=== PATIENT | male | born 1960 | race Caucasian/White ===

== ENCOUNTER → 2018-11-22 | Emergency (ER) | payer MEDICARE, MEDICAID ==
[~2018-11-22] VITALS: Ht 172.7 cm; Wt 61.2 kg
[~2018-11-22] MED LIST: Albuterol ud Inhalation HHN ONE; BACTRIM 400-801 EACH ORAL; Bactrim-DS 1 tab ORAL ONE; CIPROFLOXACIN500 MG PO; INTELENCE200 MG PO; LEVAQUIN500 MG ORAL; NORVIR100 MG PO; PREZISTA600 MG PO; Promethazine/Codeine 5ml UD ORAL ONE; RANITIDINE HCL150 MG ORAL; SEROSTIM4 MG SQ; TIVICAY50 MG ORAL; TRUVADA1 TAB PO; VALACYCLOVIR500 MG ORAL; XANAX2 MG ORAL
--- NOTE | 2018-11-22 11:48 | NUR ---
ED Nurse Note: pt states not feeling well x 2-3 days with productive cough of yellow sputum. pt reports having chills and body aches, worsened to bilat. mid back area. sttates voiding without difficulty yellow urine. states having nausea at home and taking zofran for it. denies diarrhea. pt presents ambulatory from home.
--- NOTE | 2018-11-22 11:53 | Emergency Room Report ---
History of Present Illness General Chief Complaint: Upper Respiratory Illness Source: Patient Present Illness HPI Patient presents with complaint of cough and congestion ongoing for the past several days Denies any vomiting He has some tightness with the cough as well denies any neck pain or photophobia Patient has complex medical history Otherwise denies any recent travel Denies any dysphagia Allergies: Coded Allergies: LISINOPRIL (Verified Allergy, Unknown, SWOLLEN FACE, 12/30/11) SHELLFISH (Verified Allergy, Unknown, SWOLLEN FACE, 12/30/11) Uncoded Allergies: SHELLFISH (Allergy, Mild, 02/28/07) BEE STINGS (Allergy, Unknown, 11/13/09) Patient History Past Medical History: see triage record Pertinent Family History: none Reviewed Nursing Documentation: PMH: Agreed; PSxH: Agreed Nursing Documentation-PMH Past Medical History: No History, Except For Hx Cardiac Problems: No Hx Cancer: Yes - COLON CANCER WITH SURGICAL INTERVENTION Hx Gastrointestinal Problems: No Hx Peripheral Neuropathy: Yes - hands and feet Review of Systems All Other Systems: negative except mentioned in HPI Physical Exam Vital Signs Date Time Temp Pulse Resp B/P (MAP) Pulse Ox O2 Delivery O2 Flow Rate FiO2 11/22/18 11:29 98.6 88 21 154/81 94 Room Air Sp02 EP Interpretation: reviewed, normal General Appearance: no apparent distress Head: normocephalic, atraumatic Eyes: bilateral eye PERRL, bilateral eye EOMI ENT: hearing grossly normal, normal pharynx, TMs + canals normal, uvula midline Neck: full range of motion, supple, no meningismus, no bony tend Respiratory: no rhonchi, no respiratory distress, no retraction, no accessory muscle use, crackles - bilaterally Cardiovascular #1: normal peripheral pulses, regular rate, rhythm, no edema, no gallop, no JVD, no murmur Gastrointestinal: normal bowel sounds, non tender, soft, no mass, no organomegaly, non-distended, no guarding, no hernia, no pulsatile mass, no rebound Genitourinary: no CVA tenderness Musculoskeletal: normal inspection Neurologic: oriented x3, responsive, bell neck hammerer III-XII nml as tested, motor strength/ tone normal, sensory intact Psychiatric: mood/affect normal Skin: normal color, no rash, warm/dry, palpation normal Lymphatic: normal inspection, no adenopathy Medical Decision Making Diagnostic Impression: Primary Impression: Upper respiratory infection ER Course Patient is a fairly complex patient with multiple differential to consideration including but not limited to cardiac cardiopulmonary and vascular emergencies Patient had breathing treatment provided along with cough syrup Patient also had x-ray imaging obtained no obvious acute disease patient was placed on the cardiac monitoring with appropriate oxygenation I did make contact with the patient's primary physician We discussed possible flu treatment versus Bactrim for outpatient Going back to discuss this with the patient patient reportedly left prior to final discussion, Rhythm Strip Diag. Results EP Interpretation: yes Rate: 60 Rhythm: NSR, no PVC's, no ectopy Chest X-Ray Diagnostic Results Chest X-Ray Diagnostic Results : Chest X-Ray Ordered: Yes # of Views/Limited/Complete: 1 View Indication: Shortness of Breath EP Interpretation: Yes Interpretation: no consolidation, no effusion, no pneumothorax Impression: No acute disease Electronically Signed by: Chema Mendez DO Last Vital Signs Date Time Temp Pulse Resp B/P (MAP) Pulse Ox O2 Delivery O2 Flow Rate FiO2 11/22/18 11:46 88 21 Room Air 11/22/18 11:29 98.6 154/81 94 Disposition: ELOPED Condition: Improved Chema Mendez DO Nov 22, 2018 11:53
[2018-11-22 12:53] VITALS: BP 148/78
--- NOTE | 2018-11-22 13:13 | NUR ---
ED Nurse Note: pt resting in room, awaiting further dispo. no coughing noted.
--- NOTE | 2018-11-22 13:36 | NUR ---
ED Nurse Note: pt amb steady gait to brp. requests po intake. denies increased discomfort
--- NOTE | 2018-11-22 14:13 | Diagnostic Imaging Report ---
Indication: Shortness of breath Technique: One view of the chest Comparison: 02/19/2016 Findings: The lungs and pleural spaces are clear. The heart size is normal. The aorta is elongated and ectatic Impression: Negative
--- NOTE | 2018-11-22 14:20 | NUR ---
ED Nurse Note: pt leaving ed states hes ready to leave. does not want to wait for further dispo by md. denies increased dyspnea or n/v. tolerates meds well
== END | disposition left against medical advice (07) ==
LOC: EMR 12:00
DX: J06.9 Acute upper respiratory infection, unspecified (principal); Z88.8 Allergy status to other drugs, medicaments and biological substances; Z91.030 Bee allergy status; Z91.013 Allergy to seafood; Z85.038 Personal history of other malignant neoplasm of large intestine
CPT/HCPCS: 71045; 94640; 99284